=== PATIENT | female | born 1980 | race Caucasian/White ===

== ENCOUNTER 2020-12-24 12:54 | Outpatient (CLI) | payer OTHER ==
--- NOTE | 2020-12-24 15:24 | XRAY Report ---
PROCEDURE: Chest 2 View X-Ray INDICATIONS: ASTHMA TECHNIQUE: 2 view(s) of the chest. COMPARISON: None. FINDINGS: Surgical changes and devices: None. Lungs and pleura: No pleural effusions or pneumothorax. Lungs are clear. Mediastinum: Mediastinal contours are normal. Heart size is normal. Bones and chest wall: No suspicious bony abnormalities. Soft tissues appear unremarkable. IMPRESSION: Normal for age, source of current symptoms is not seen. Reviewed by: Kolton Del Cid MD on 12/24/2020 3:23 PM [facility] Approved by: Kolton Del Cid MD on 12/24/2020 3:23 PM PST Station ID: [id number]
== END 2020-12-24 12:55 | disposition home or self-care (01) ==
LOC: DI 12:54
PROVIDERS: ATTEND Family Medicine
DX: J45.40 Moderate persistent asthma, uncomplicated (principal)